=== PATIENT | male | born 1945 | race Caucasian/White ===

== ENCOUNTER → 2016-08-05 07:31 | Outpatient (CLI) | payer MEDICARE | END | disposition home or self-care (01) | LOC: D.CT 07:31 | DX: R04.2 Hemoptysis (principal); J44.9 Chronic obstructive pulmonary disease, unspecified ==

== ENCOUNTER 2016-08-12 04:00 | Emergency (ER) | payer MEDICARE ==
[2016-08-13] MEDS ORDERED: IPRAT-ALBUT 0.5-3 ML UPD (15:38)
[2016-08-13] MEDS ORDERED: ZANTAC150 MG PO (15:39)
[2016-08-14 13:06] VITALS: BMI 16.9
== END 2016-08-12 05:00 | disposition home or self-care (01) ==
LOC: D.ER 04:00
DX: J47.1 Bronchiectasis with (acute) exacerbation (principal); J44.1 Chronic obstructive pulmonary disease with (acute) exacerbation

== ENCOUNTER 2016-08-13 04:17 | Emergency (ER) | payer MEDICARE ==
[2016-08-13] MEDS ORDERED: IPRAT-ALBUT 0.5-3 ML UPD (15:38)
[2016-08-13] MEDS ORDERED: ZANTAC150 MG PO (15:39)
[2016-08-14 13:06] VITALS: BMI 16.9
== END 2016-08-13 05:30 | disposition home or self-care (01) ==
LOC: D.ER 04:17
DX: R06.02 Shortness of breath (principal); J44.1 Chronic obstructive pulmonary disease with (acute) exacerbation

== ENCOUNTER 2016-08-13 10:22 | Inpatient (IN) | payer MEDICARE ==
[~2016-08-13] VITALS: Ht 182.9 cm; Wt 58.2 kg
[2016-08-13 11:20] LABS: BASOPHILS 0.3 % (0-2); EOSINOPHILS 0.6 % (0-7); HEMATOCRIT 42.2 % (42.0-54.0); IMMATURE GRANULOCYTES 0.3 % (0-5); LYMPHOCYTES 17.9 % (15-50); MCH 31.5 pg (26.0-34.0); MCHC 33.2 g/dL (31.0-37.0); MCV 94.8 fL (80.0-100.0); MEAN PLATELET VOLUME 8.8 fL (7.4-10.4); MONOCYTES 10.6 % (2-11); NEUTROPHILS 70.3 % (40-80); RBC 4.45 10x6/uL (4.20-6.10); RDW 14.3 % (11.5-14.5); WBC 11.6 10x3/uL (4.8-10.8)
[2016-08-13 11:22] LABS: ALBUMIN 4.1 g/dL (3.4-5.0); ALKALINE PHOSPHATASE 104 U/L (46-116); ALT (SGPT) 28 U/L (10-68); BILIRUBIN - TOTAL 0.77 mg/dL (0.2-1.3); CALC OSMOLALITY 280 mosm/kg (275-300); CALCIUM 9.3 mg/dL (8.5-10.1); CARBON DIOXIDE 28.8 mmol/L (21.0-32.0); CHLORIDE - SERUM 102 mmol/L (98-107); GLUCOSE 94 mg/dL (74-106); POTASSIUM - SERUM 3.6 mmol/L (3.5-5.1); PROTEIN - SERUM 7.2 g/dL (6.4-8.2); SODIUM 140 mmol/L (136-145); UREA NITROGEN 19 mg/dL (7-18); eGFR NON AFRICAN AMERICAN 78 mL/min (90-120)
[2016-08-13 11:23] LABS: PLATELET COUNT 319 10x3/uL (130-400)
[2016-08-13 11:29] LABS: PRO BNP 532 pg/mL (0-125)
--- NOTE | 2016-08-13 15:35 | NUR ---
1523- RECEIVED PT VIA WHEELCHAIR. PT IS ALERT AND ORIENTED. UP AD MINA. ON O2 AT 2L VIA NC. NO MONITOR (CURRENTLY). IV SEEN TO LEFT AC WITH NS RUNNING AT 100CC. WILL ADMIT PT AND CONTINUE TO MONITOR.
[2016-08-13] MEDS ORDERED: IPRAT-ALBUT 0.5-3 ML UPD (15:38)
[2016-08-13] MEDS ORDERED: ZANTAC150 MG PO (15:39)
[2016-08-13 15:40] VITALS: BP 123/76; BMI 18.0
[2016-08-13 15:49] VITALS: BP 123/76
--- NOTE | 2016-08-13 17:08 | NUR ---
ON MONITOR SHOWING SR, HR 79.
--- NOTE | 2016-08-13 18:18 | NUR ---
PT IS CURRENTLY SITTING UP IN BED WITH EYES OPEN RESTING. IS AT BEDSIDE. NO NEED AT CURRENT TIME. DR. GUAN IS IN ROOM NOW MAKING ROUNDS NOW. WILL CONTINUE TO MONITOR.
[2016-08-13 19:00] VITALS: BP 118/73
--- NOTE | 2016-08-13 20:02 | NUR ---
UA COLLECTED AND SENT TO LAB
[2016-08-13 20:16] LABS: APPEARANCE CLEAR (CLEAR); BILIRUBIN NEGATIVE (NEGATIVE); COLOR STRAW (YELLOW); GLUCOSE NEGATIVE (NEGATIVE); KETONE NEGATIVE (NEGATIVE); LEUKOCYTE ESTERASE NEGATIVE (NEGATIVE); NITRITE NEGATIVE (NEGATIVE); PROTEIN NEGATIVE (NEGATIVE); SPECIFIC GRAVITY 1.005 (1.005-1.020); UROBILINOGEN NORMAL (NORMAL)
[2016-08-13 20:18] LABS: WHITE CELLS - URINE NSEEN /hpf (0-5)
[2016-08-13 20:19] LABS: BACTERIA NONE SEEN /hpf (NONE SEEN); EPITHELIAL CELLS 0-5 /hpf (0-5); RED CELLS - URINE 0-5 /hpf (0-5)
--- NOTE | 2016-08-14 03:06 | NUR ---
FACILITY PLANNER AT BEDSIDE TO OBTAIN VITALS, CALL LIGHT IN REACH. WILL CONTINUE WITH PLAN OF CARE.
[2016-08-14 04:00] VITALS: BP 121/72
--- NOTE | 2016-08-14 04:02 | NUR ---
ASSESSMENT COMPLETE, SEE FLOWSHEET, FAMILY AT BEDSIDE, CALL LIGHT IN REACH, WILL CONTINUE TO MONITOR
[2016-08-14 06:27] LABS: BASOPHILS 0 % (0-2); EOSINOPHILS 0 % (0-7); HEMATOCRIT 42.3 % (42.0-54.0); HEMOGLOBIN 14.2 g/dL (13.5-17.5); IMMATURE GRANULOCYTES 0.3 % (0-5); LYMPHOCYTES 4.2 % (15-50); MCH 31.8 pg (26.0-34.0); MCHC 33.6 g/dL (31.0-37.0); MCV 94.8 fL (80.0-100.0); MEAN PLATELET VOLUME 8.6 fL (7.4-10.4); MONOCYTES 5.1 % (2-11); NEUTROPHILS 90.4 % (40-80); PLATELET COUNT 296 10x3/uL (130-400); RBC 4.46 10x6/uL (4.20-6.10); RDW 14.5 % (11.5-14.5)
[2016-08-14 06:33] LABS: WBC 14.6 10x3/uL (4.8-10.8)
[2016-08-14 07:23] LABS: CALC OSMOLALITY 278 mosm/kg (275-300); CALCIUM 9.1 mg/dL (8.5-10.1); CARBON DIOXIDE 26.7 mmol/L (21.0-32.0); CHLORIDE - SERUM 102 mmol/L (98-107); GLUCOSE 118 mg/dL (74-106); SODIUM 138 mmol/L (136-145); UREA NITROGEN 17 mg/dL (7-18); eGFR NON AFRICAN AMERICAN 78 mL/min (90-120)
[2016-08-14 07:24] LABS: POTASSIUM - SERUM 4.4 mmol/L (3.5-5.1)
--- NOTE | 2016-08-14 07:34 | NUR ---
AM ROUNDING- RECEIVED REPORT FROM ICE PLATFORM SUPERVISOR NURSE CHANEL. PT IS CURRENTLY SITTING UP IN BED WITH EYES OPEN RECEIVING AT BREATHING TX. ALERT AND ORIENTED. ON AT 2L VIA NC. ON MONITOR SHOWING SR, HR 60. IV SEEN TO LEFT AC WITH NS RUNNING AT KVO (10CC). NO NEED AT CURRENT TIME. WILL CONTINUE TO MONITOR AND CONTINUE WITH PLAN OF CARE.
[2016-08-14 08:30] VITALS: BP 137/82
[2016-08-14 12:30] VITALS: BP 110/77
[2016-08-14 13:06] VITALS: Ht 182.9 cm; Wt 58.2 kg
[2016-08-14 16:00] VITALS: BP 122/71
--- NOTE | 2016-08-14 17:21 | NUR ---
STEPHANI, LABORATORY COORDINATOR IS PAGING DR. CARABALLO DUE TO PT REQUESTING ZANTAC FOR FEELING "BLOATED". WILL AWAIT CALLBACK.
--- NOTE | 2016-08-14 17:23 | NUR ---
RECEIVED CALLBACK FROM DR. CARABALLO WITH NEW ORDERS RECEIVED.
--- NOTE | 2016-08-14 18:10 | NUR ---
1745- DR. VENEGAS ON UNIT. YARELIS IS TALKING WITH DR. VENEGAS CURRENTLY ABOUT PT BEING CONFUSED AND WANTING TO GO HOME. ASKED DR. VENEGAS ABOUT STARTED IV FLUIDS ( REQUESTED BY YARELIS). DR. VENEGAS GAVE VERBAL ORDERS FOR NS TO RUN AT 50CC/HR. WILL DO ORDERED AND CONTINUE TO MONITOR.
--- NOTE | 2016-08-14 18:20 | NUR ---
PT IS CURRENTLY WALKING AROUND NURSES STATION WITH AT SIDE. PT DENIES ANY NEED AT CURRENT TIME. WILL CONTINUE TO MONITOR.
[2016-08-14 19:00] VITALS: BP 118/68
--- NOTE | 2016-08-14 19:35 | NUR ---
RECEIVED REPORT, PT VISITING WITH , DENIES ANY NEEDS, BED IS LOW, SRX1, WILL CONTINUE PLAN OF CARE
--- NOTE | 2016-08-15 03:48 | NUR ---
ASSESSMENT COMPLETE, 022L, [id number], [id number]-94-ML, ENCOURAGE TO USE INCENTIVE SPIRAMETER, FAMILY AT BEDSIDE, BED IS LOW, SRX1, PT IS UP AB MINA, CALL LIGHT IN REACH, WILL CONTINUE PLAN OF CARE
[2016-08-15 04:00] VITALS: BP 122/76
--- NOTE | 2016-08-15 07:05 | NUR ---
RECEIVED REPORT. ASSUMED CARE OF PATIENT. PATIENT SITTING UP IN BED HAVING COFFEE. RESP EVEN AND UNLABORED. PATIENT STATES HE FEELS BETTER TODAY THAN HE HAS. PATIENT IS COMPLETELY DRESSED IN STREET CLOTHING. DENIES NEEDS. CALL LIGHT WITHIN REACH. NO DISTRESS.
[2016-08-15 08:54] VITALS: BP 121/66
[2016-08-15 09:17] LABS: BASOPHILS 0.1 % (0-2); EOSINOPHILS 0.1 % (0-7); HEMATOCRIT 44.4 % (42.0-54.0); HEMOGLOBIN 14.8 g/dL (13.5-17.5); IMMATURE GRANULOCYTES 0.3 % (0-5); LYMPHOCYTES 10.2 % (15-50); MCH 31.8 pg (26.0-34.0); MCHC 33.3 g/dL (31.0-37.0); MCV 95.3 fL (80.0-100.0); MEAN PLATELET VOLUME 8.8 fL (7.4-10.4); MONOCYTES 7.1 % (2-11); NEUTROPHILS 82.2 % (40-80); PLATELET COUNT 308 10x3/uL (130-400); RBC 4.66 10x6/uL (4.20-6.10); RDW 14.6 % (11.5-14.5); WBC 17.2 10x3/uL (4.8-10.8)
[2016-08-15 09:28] LABS: CALC OSMOLALITY 278 mosm/kg (275-300); CALCIUM 9.2 mg/dL (8.5-10.1); CARBON DIOXIDE 25.8 mmol/L (21.0-32.0); CHLORIDE - SERUM 102 mmol/L (98-107); CREATININE - SERUM 0.9 mg/dL (0.6-1.3); GLUCOSE 106 mg/dL (74-106); MAGNESIUM - SERUM 1.9 mg/dL (1.8-2.4); PHOSPHOROUS 3.3 mg/dL (2.5-4.9); SODIUM 138 mmol/L (136-145); UREA NITROGEN 20 mg/dL (7-18); eGFR NON AFRICAN AMERICAN 88 mL/min (90-120)
[2016-08-15 09:31] LABS: POTASSIUM - SERUM 3.6 mmol/L (3.5-5.1)
--- NOTE | 2016-08-15 10:00 | EC ---
PATIENT:ALFONSO JONAS DATE OF SERVICE: 08/13/16 SEX: M MEDICAL RECORD: [id number] DATE OF : [birth year] LOCATION:D.M2 D.213 AGE OF PATIENT: 70 ADMISSION DATE: 08/13/16 REFERRING PHYSICIAN: INTERPRETING PHYSICIAN: ROSITA WIN MD ECHOCARDIOGRAM REPORT ECHO CHARGES 4 ECHO COMPLETE CLINICAL DIAGNOSIS: SOB ECHOCARDIOGRAPHIC MEASUREMENTS (adult normal given) AC root (d.<3.7cm) 3.7 LV Septum d (<1.2 cm> 1.0 Valve Excursion 1.2 LV Septum (systole) 1.1 Left Atria (s.<4.0cm> 3.5 LVPW d(<1.2cm) 1.1 RV (d.<2.3cm) 3.6 LVPW (sytole) 1.2 LV diastole(<5.6CM) 5.0 MV E-F(>70mm/sec) LV systole 2.7 LVOT Diameter 1.2 MV exc.(>10mm) 2.4 Est.ejection fraction (50-75%) Pericardial Effusion N DOPPLER: LVIT A 76.0 E 64.0 LA RVSP 41 LVOT 92 AOP1/2T Asc. Ao RVOT 159 RA PA AV Gradient Peak 10.00 AV Mean 4.63 AV Area 1.2 MV Gradient Peak 4.37 MV Mean 1.63 MV Area COMMENTS: Forest Pathology Professor: Sacha MCWILLIAMS Steel Die Engraver:2 Dr. Recio TAPE# PACS DATE OF SERVICE: 08/14/2016 Adequate 2D echo, color flow, spectral Doppler and M-mode. No LVH. LV internal dimension is normal. Wall motion is normal. EF is greater than or equal to 55%. Aortic valve sclerosis without stenosis by Doppler interrogation. The left atrium is normal. Mitral valve shows no prolapse, only mild MR. Right-sided chamber is normal. Trace TR. TRANSINT:[id number] Voice Confirmation ID: [id number] DOCUMENT ID: [id number] ECHOCARDIOGRAM REPORT [id number] ALFONSO JONAS ROSITA WIN MD at 1000 CC: [id number] DICTATION DATE: 08/14/16 1251 EMPLOYEE BENEFITS INSURANCE AGENT: 08/14/16 2211 ADM IN [facility] [address] [facility] [place] [address]
--- NOTE | 2016-08-15 10:50 | NUR ---
PATIENT DISCONNECTED FROM IV KVO RATE AT THIS TIME SO PATIENT CAN AMBULATE ON UNIT WITH HIS . AMBULATING WELL THROUGHOUT UNIT. NO DISTRESS
[2016-08-15 12:00] VITALS: BP 111/68
--- NOTE | 2016-08-15 15:00 | NUR ---
PATIENT AMBULATING WITH IV POLE AROUND UNIT WITH HIS SPOUSE. RESP EVEN AND UNLABORED. NO DISTRESS.
[2016-08-15 16:59] VITALS: BP 100/62
--- NOTE | 2016-08-15 17:00 | NUR ---
SHOWER COMPLETED AND LINENS CHANGED. PATIENT O2 SAT ON ROOM AIR AT THIS TIME IS 98%, PATIENT HAS BEEN OFF OXYGEN X 20 MINUTES WHILE IN SHOWER. SITTING IN BED. CALL LIGHT WITHIN REACH. NO DISTRESS.
[2016-08-15 19:00] VITALS: BP 96/58
--- NOTE | 2016-08-15 19:25 | NUR ---
RECEIVED REPORT, PT UP TO SINK BRUSHING TEETH, AT BEDSIDE, WILL CONTINUE PLAN OF CARE
[2016-08-16] VITALS: BP 112/72
--- NOTE | 2016-08-16 03:54 | NUR ---
ASSESSMENT COMPLETE, SEE FLOWSHEET, PT SLEEPING, AT BEDSIDE, BED IS LOW, SRX2, CALL LIGHT IN REACH, WILL CONTINUE PLAN OF CARE
[2016-08-16 04:00] VITALS: BP 112/71
--- NOTE | 2016-08-16 04:41 | NUR ---
PT RESTING IN BED WITH NO DISTRESS. CPOC.
[2016-08-16 05:21] LABS: BASOPHILS 0.1 % (0-2); EOSINOPHILS 0 % (0-7); HEMATOCRIT 42.2 % (42.0-54.0); HEMOGLOBIN 14.2 g/dL (13.5-17.5); IMMATURE GRANULOCYTES 0.2 % (0-5); MCH 32.2 pg (26.0-34.0); MCHC 33.6 g/dL (31.0-37.0); MCV 95.7 fL (80.0-100.0); MEAN PLATELET VOLUME 9.1 fL (7.4-10.4); NEUTROPHILS 89.7 % (40-80); PLATELET COUNT 330 10x3/uL (130-400); RBC 4.41 10x6/uL (4.20-6.10); RDW 14.7 % (11.5-14.5)
[2016-08-16 05:27] LABS: CALC OSMOLALITY 277 mosm/kg (275-300); CALCIUM 8.8 mg/dL (8.5-10.1); CARBON DIOXIDE 28.5 mmol/L (21.0-32.0); CHLORIDE - SERUM 101 mmol/L (98-107); CREATININE - SERUM 0.9 mg/dL (0.6-1.3); GLUCOSE 133 mg/dL (74-106); POTASSIUM - SERUM 4.4 mmol/L (3.5-5.1); SODIUM 137 mmol/L (136-145); UREA NITROGEN 17 mg/dL (7-18); WBC 12.1 10x3/uL (4.8-10.8); eGFR NON AFRICAN AMERICAN 88 mL/min (90-120)
[2016-08-16] MEDS ORDERED: SINGULAIR10 MG PO (05:58)
[2016-08-16] MEDS ORDERED: PULMICORT0.5 MG/21 UPD (05:58)
[2016-08-16] MEDS ORDERED: PREDNISONE20 MG PO (05:59)
[2016-08-16] MEDS ORDERED: LEVAQUIN500 MG PO (05:59)
--- NOTE | 2016-08-16 07:00 | NUR ---
RECIEVED REPORT. ASSUMED CARE OF PATIENT. CALL LIGHT WITHIN REACH. PATIENT SITTING UP IN BED WITH ATTENTION TOWARDS TELVISION. RESP EVEN AND UNLABORED. PATIENT REPORTS THAT HE WILL BE GOING HOME TODAY. DISCHARGE ORDERS VERIFIED. DENIES NEEDS. NO DISTRESS.
--- NOTE | 2016-08-16 10:05 | NUR ---
18 GAUGE IV CATHETER REMOVED FROM LEFT FOREARM PATIENT IS DISCHARGING TO HOME. CATHETER TIP INTACT. NO BLEEDING FROM SITE. 2X2 GAUZE APPLIED AND SECURED WITH TAPE. PATIENT TOLERATED IV REMOVAL WELL. NO DISTRESS. PATIENT UP AMBULATING ON UNIT WITH HIS SPOUSE WAITING ON DISCHARGE PAPERS AT THIS TIME.
--- NOTE | 2016-08-16 11:44 | NUR ---
1125 DISCHARGE INSTRUCTIONS PROVIDED TO PATIENT. PATIENT VERBALIZED UNDERSTANDING OF ALL INSTRUCTIONS PROVIDED. PRESCRIPTIONS ESCRIBED TO STEPHANY VIA .
--- NOTE | 2016-08-16 12:18 | NUR ---
1205 PATIENT LEFT UNIT VIA WHEELCHAIR. PATIENT DISCHARGED TO HOME WITH FAMILY. PATIENT LEFT UNIT WITH ALL PERSONAL BELONGINGS. NO DISTRESS UPON LEAVING UNIT.
--- NOTE | 2016-08-16 18:54 | NUR ---
PATIENT WAS DISCHARGED EARLIER TODAY AND CALLED DUE TO MEDICATION QUESTIONS. PATIENT STATES [facility] GAVE HIM SYMBICORT AND HE SAID HE THOUGHT HIS PRESCRIPTION WAS FOR PULMICORT. DISCHARGE INSTRUCTION ACCESSED AND VERIFIED THAT D/C MED WAS FOR PULMICORT AND [facility]AR[facility] GAVE WRONG MED. INSTRUCTED PATIENT NOT TO USE THE MED GIVEN AND CONTACT PHARMACY IN AM FOR CORRECT PULMICORT. PATIENT THANKED THIS NURSE.
== END 2016-08-16 12:05 | disposition home or self-care (01) | DRG 190 ==
LOC: D.ER 10:22 → D.M2 13:56
PROVIDERS: Emergency Medicine; Internal Medicine Pulmonary Disease; ADMIT Family Medicine
DX: J44.0 Chronic obstructive pulmonary disease with (acute) lower respiratory infection (principal); J15.6 Pneumonia due to other Gram-negative bacteria; F17.203 Nicotine dependence unspecified, with withdrawal; J44.1 Chronic obstructive pulmonary disease with (acute) exacerbation; K21.9 Gastro-esophageal reflux disease without esophagitis; F41.9 Anxiety disorder, unspecified

== ENCOUNTER 2016-10-04 14:17 | Emergency (ER) | payer MEDICARE ==
[2016-08-14 13:06] VITALS: BMI 16.9
[~2016-10-04 14:17] MED LIST: IPRAT-ALBUT 0.5-3 ML UPD; LEVAQUIN500 MG PO; PREDNISONE20 MG PO; PULMICORT0.5 MG/21 UPD; SINGULAIR10 MG PO; ZANTAC150 MG PO
== END 2016-10-04 16:35 | disposition home or self-care (01) ==
LOC: D.ER 14:17
DX: T78.40XA Allergy, unspecified, initial encounter (principal); X58.XXXA Exposure to other specified factors, initial encounter; L50.9 Urticaria, unspecified; C67.9 Malignant neoplasm of bladder, unspecified; J44.9 Chronic obstructive pulmonary disease, unspecified

== ENCOUNTER → 2016-10-13 15:20 | Outpatient (CLI) | payer MEDICARE ==
[2016-08-14 13:06] VITALS: BMI 16.9
== END | disposition home or self-care (01) ==
LOC: D.LABREF 15:20
DX: R31.9 Hematuria, unspecified (principal)

== ENCOUNTER → 2016-10-16 10:35 | Outpatient (CLI) | payer MEDICARE ==
[2016-08-14 13:06] VITALS: BMI 16.9
== END | disposition home or self-care (01) ==
LOC: D.CT 10-15 13:00
DX: R31.29 Other microscopic hematuria (principal); Z85.51 Personal history of malignant neoplasm of bladder

== ENCOUNTER 2016-10-22 07:27 | Emergency (ER) | payer MEDICARE ==
[2016-08-14 13:06] VITALS: BMI 16.9
[2016-10-22 08:56] LABS: BASOPHILS 0.4 % (0-2); EOSINOPHILS 1.2 % (0-7); HEMATOCRIT 43.2 % (42.0-54.0); HEMOGLOBIN 14.3 g/dL (13.5-17.5); IMMATURE GRANULOCYTES 0.3 % (0-5); LYMPHOCYTES 22.4 % (15-50); MCH 31.4 pg (26.0-34.0); MCHC 33.1 g/dL (31.0-37.0); MCV 94.7 fL (80.0-100.0); MEAN PLATELET VOLUME 8.6 fL (7.4-10.4); MONOCYTES 10.1 % (2-11); NEUTROPHILS 65.6 % (40-80); RBC 4.56 10x6/uL (4.20-6.10); RDW 14.5 % (11.5-14.5); WBC 9.5 10x3/uL (4.8-10.8)
[2016-10-22 09:01] LABS: PLATELET COUNT 261 10x3/uL (130-400)
[2016-10-22 09:21] LABS: ALBUMIN 3.9 g/dL (3.4-5.0); ALKALINE PHOSPHATASE 97 U/L (46-116); ALT (SGPT) 36 U/L (10-68); BILIRUBIN - TOTAL 0.96 mg/dL (0.2-1.3); CALC OSMOLALITY 276 mosm/kg (275-300); CALCIUM 8.8 mg/dL (8.5-10.1); CARBON DIOXIDE 31.3 mmol/L (21.0-32.0); CHLORIDE - SERUM 100 mmol/L (98-107); GLUCOSE 98 mg/dL (74-106); POTASSIUM - SERUM 3.9 mmol/L (3.5-5.1); PROTEIN - SERUM 6.6 g/dL (6.4-8.2); SODIUM 138 mmol/L (136-145); UREA NITROGEN 15 mg/dL (7-18); eGFR NON AFRICAN AMERICAN 78 mL/min (90-120)
== END 2016-10-22 10:14 | disposition home or self-care (01) ==
LOC: D.ER 07:27
PROVIDERS: Emergency Medicine
DX: J44.1 Chronic obstructive pulmonary disease with (acute) exacerbation (principal); R00.1 Bradycardia, unspecified

== ENCOUNTER 2016-11-17 08:59 | Outpatient (CLI) | payer MEDICARE ==
[~2016-11-17] VITALS: Ht 182.9 cm; Wt 59.1 kg
[2016-11-17] MEDS ORDERED: PREDNISONE5 MG PO (10:31)
[2016-11-17] MEDS ORDERED: CARAFATE1 G PO (10:31)
[2016-11-17 10:36] VITALS: BP 120/70; Ht 182.9 cm; Wt 59.1 kg
[2016-11-17 10:43] LABS: BASOPHILS 0.2 % (0-2); EOSINOPHILS 1.5 % (0-7); HEMATOCRIT 41.8 % (42.0-54.0); HEMOGLOBIN 13.9 g/dL (13.5-17.5); IMMATURE GRANULOCYTES 0.5 % (0-5); LYMPHOCYTES 20.6 % (15-50); MCH 31.4 pg (26.0-34.0); MCHC 33.3 g/dL (31.0-37.0); MCV 94.6 fL (80.0-100.0); MEAN PLATELET VOLUME 8.3 fL (7.4-10.4); MONOCYTES 10.5 % (2-11); NEUTROPHILS 66.7 % (40-80); PLATELET COUNT 244 10x3/uL (130-400); RBC 4.42 10x6/uL (4.20-6.10); RDW 14.3 % (11.5-14.5); WBC 9.4 10x3/uL (4.8-10.8)
[2016-11-17 10:53] LABS: APTT 28.2 SECONDS (22.8-39.4); INR 1.01 (0.85-1.17); PROTIME 13.1 SECONDS (11.6-15.0)
--- NOTE | 2016-11-17 13:01 | NUR ---
1230 XRAY HERE FOR CXRAY; 1245 ICE CHIPS GIVEN
--- NOTE | 2016-11-17 14:24 | NUR ---
1415 POST PROCEDURE CHEST XRAY WITH NO PNEUMOTHORAX. PT UP TO BATHROOM. AMBULATORY WITHOUT DIFFICULTY. VOIDED. BACK TO BED. IV DC'ED WITH CATH INTACT. DRESSING. FAMILY AT BEDSIDE. Shannon HELTON R.N. 1420 DRESSED. GIVEN DISCHARGE INSTRUCTIONS INCLUDING MED REC, RTC APPT., COMPUTER GENERATED POST BRONCHOSCOPY DISCHARGE INSTRUCTIONS, & [facility] OPS D/C INSTRUCTIONS. PT VOICED UNDERSTANDING. TO PRIVATE CAR PER WHEELCHAIR. HOME WITH MRS. JONAS. Shannon HELTON R.N.
[2016-11-19 16:13] LABS: ACID FAST SMEAR Negative (()); AFB SPECIMEN PROCESSING Concentration (())
[2016-11-20 12:16] LABS: FUNGUS STAIN Final report (())
[2016-11-25 10:20] LABS: FUNGUS MYCOLOGY CULTURE Preliminary report (())
== END 2016-11-17 14:20 | disposition home or self-care (01) ==
LOC: D.OPS 08:59
PROVIDERS: Internal Medicine Pulmonary Disease
DX: J44.1 Chronic obstructive pulmonary disease with (acute) exacerbation (principal); Z83.49 Family history of other endocrine, nutritional and metabolic diseases; J47.9 Bronchiectasis, uncomplicated; R93.8 Abnormal findings on diagnostic imaging of other specified body structures; F17.200 Nicotine dependence, unspecified, uncomplicated; G47.19 Other hypersomnia; R63.4 Abnormal weight loss; K21.9 Gastro-esophageal reflux disease without esophagitis; R05 Cough; Z01.812 Encounter for preprocedural laboratory examination

== ENCOUNTER → 2016-11-19 13:42 | Outpatient (CLI) | payer MEDICARE ==
[2016-11-17 10:36] VITALS: BMI 17.6
[~2016-11-19 13:42] MED LIST changes: +CARAFATE1 G PO; +PREDNISONE5 MG PO
== END | disposition home or self-care (01) ==
LOC: D.RT 13:42
DX: J47.9 Bronchiectasis, uncomplicated (principal)

== ENCOUNTER 2016-11-21 16:06 | Emergency (ER) | payer MEDICARE | END 2016-11-21 18:28 | disposition home or self-care (01) | LOC: D.ER 16:06 | DX: R06.00 Dyspnea, unspecified (principal); F17.200 Nicotine dependence, unspecified, uncomplicated; J44.9 Chronic obstructive pulmonary disease, unspecified; Z85.51 Personal history of malignant neoplasm of bladder; Q21.1 Atrial septal defect ==

== ENCOUNTER 2016-12-01 10:08 | Day surgery (SDC) | payer MEDICARE ==
[~2016-12-01] VITALS: Ht 182.9 cm; Wt 59.0 kg
[~2016-12-01 10:08] MED LIST changes: +DIFLUCAN100 MG; +PREDNISONE10 MG PO; -PREDNISONE5 MG PO
[2016-12-01 11:11] VITALS: BP 146/67; Ht 182.9 cm; Wt 59.0 kg
[2016-12-01 11:15] LABS: BASOPHILS 0.3 % (0-2); EOSINOPHILS 1.1 % (0-7); HEMATOCRIT 42.8 % (42.0-54.0); HEMOGLOBIN 14.3 g/dL (13.5-17.5); IMMATURE GRANULOCYTES 0.9 % (0-5); LYMPHOCYTES 29.7 % (15-50); MCH 31.6 pg (26.0-34.0); MCHC 33.4 g/dL (31.0-37.0); MCV 94.7 fL (80.0-100.0); MEAN PLATELET VOLUME 8.2 fL (7.4-10.4); MONOCYTES 10.1 % (2-11); NEUTROPHILS 57.9 % (40-80); RBC 4.52 10x6/uL (4.20-6.10); RDW 14.6 % (11.5-14.5); WBC 10.5 10x3/uL (4.8-10.8)
[2016-12-01 11:17] LABS: PLATELET COUNT 293 10x3/uL (130-400)
[2016-12-01 11:28] LABS: CALC OSMOLALITY 274 mosm/kg (275-300); CALCIUM 8.5 mg/dL (8.5-10.1); CARBON DIOXIDE 30.6 mmol/L (21.0-32.0); CHLORIDE - SERUM 102 mmol/L (98-107); CREATININE - SERUM 0.9 mg/dL (0.6-1.3); GLUCOSE 78 mg/dL (74-106); POTASSIUM - SERUM 3.5 mmol/L (3.5-5.1); SODIUM 138 mmol/L (136-145); UREA NITROGEN 12 mg/dL (7-18); eGFR NON AFRICAN AMERICAN 88 mL/min (90-120)
[2016-12-01 11:37] LABS: APTT 26.9 SECONDS (22.8-39.4); INR 0.99 (0.85-1.17)
--- NOTE | 2016-12-01 16:27 | NUR ---
1545 IV DC WITH CATHER TIP INTACT, VOIDED
--- NOTE | 2016-12-02 14:43 | OP ---
PATIENT NAME: ALFONSO JONAS MEDICAL RECORD: [id number] :43 LOCATION:[facility] ADMISSION DATE: SURGEON: ERNST DUNAWAY MD DATE OF OPERATION: 12/01/2016 SURGEON: Ernst Dunaway MD ANESTHESIA: General anesthesia by Dana Smith CRNA PREOPERATIVE DIAGNOSES: History of bladder cancer, microhematuria. PROCEDURE: Cystoscopy. FINDINGS: Single ureteral orifices bilaterally, no bladder tumors. CLINICAL HISTORY: This is a 71-year-old male, who was referred by Dr. Mazariegos for microhematuria. He has a diagnosis of non-muscle invasive bladder cancer in 2007. This was in [place]. His last cystoscopy was in 2012 when he left [place]. Since he has been here in [place], he has not had any cystoscopy performed. He does have a history of smoking 2 packs per day for 60 years and he quit in 07/2016 when he was hospitalized here for a COPD exacerbation. Past history includes COPD, alcoholism, GERD, and bladder cancer. A hematuria workup was performed on him. Urine cytology was benign. He has CT scan of the abdomen and pelvis. This showed mucus plugging of the lower lobes of the lung with some atelectasis. Kidneys were normal. Bladder was not in any way unusual. He comes now to have cystoscopy performed. HE IS ALLERGIC TO PENICILLIN, SULFA, BEE VENOM, AND COCA. He was given Levaquin 500 mg IV probation manager to the OR. General anesthesia was given to the patient in case we had to perform a resection. Also, anesthesia felt that he should be intubated because of his GERD and risk of aspiration. DESCRIPTION OF PROCEDURE: The patient was given induction of general anesthesia. He was placed in the dorsal lithotomy position and prepped and draped. A 17-German cystoscope with 30-degree lens was used for visualization. Penile urethra was normal with no strictures or tumors. Prostatic urethra is vascular; however, it is nonobstructive. The bladder neck was somewhat tight. Going into the bladder, there are single ureteral orifices on each side. There are some slight areas of inflammation in the bladder, but no obvious tumors were seen. Most likely, the microhematuria is coming from the vascular prostate. The bladder was then emptied entirely through the cystoscope sheath, and the scope was removed. TRANSINT:[id number] Voice Confirmation ID: [id number] DOCUMENT ID: [id number] ERNST DUNAWAY MD at 1443 CC: [id number] DICTATION DATE: 12/01/16 1434 HOME BASED ASSISTANT: 12/01/16 175 [facility] 12/01/16 [place] [id number] [place] [id number]
== END 2016-12-01 16:00 | disposition home or self-care (01) ==
LOC: D.OPS 10:08 → D.PAN 12:00 → D.OPS 16:00
PROVIDERS: Anesthesiology
DX: R31.21 Asymptomatic microscopic hematuria (principal); Z85.51 Personal history of malignant neoplasm of bladder; F17.200 Nicotine dependence, unspecified, uncomplicated; J44.9 Chronic obstructive pulmonary disease, unspecified; K21.9 Gastro-esophageal reflux disease without esophagitis; Z01.812 Encounter for preprocedural laboratory examination

== ENCOUNTER → 2016-12-07 08:26 | Outpatient (CLI) | payer MEDICARE ==
[2016-12-01 11:11] VITALS: BMI 17.6
== END | disposition home or self-care (01) ==
LOC: D.US 11-30 09:30 → D.RAD 12-01 08:45 → D.NM 12-01 10:00 → D.US 08:26
DX: K59.00 Constipation, unspecified (principal); B37.81 Candidal esophagitis; K31.89 Other diseases of stomach and duodenum; K31.5 Obstruction of duodenum

== ENCOUNTER → 2016-12-21 08:41 | Outpatient (CLI) | payer MEDICARE ==
[2016-12-01 11:11] VITALS: BMI 17.6
== END | disposition home or self-care (01) ==
LOC: D.NM 12-10 09:00
DX: K59.00 Constipation, unspecified (principal)

== ENCOUNTER → 2017-04-01 10:12 | Outpatient (CLI) | payer MEDICARE ==
[2016-12-01 11:11] VITALS: BMI 17.6
== END | disposition home or self-care (01) ==
LOC: D.CT 01-13 11:00
DX: J32.9 Chronic sinusitis, unspecified (principal); J44.9 Chronic obstructive pulmonary disease, unspecified

== ENCOUNTER → 2018-01-25 13:43 | Outpatient (CLI) | payer MEDICARE ==
[2016-12-01 11:11] VITALS: BMI 17.6
== END | disposition home or self-care (01) ==
LOC: D.RT 13:43
DX: J44.9 Chronic obstructive pulmonary disease, unspecified (principal)

== ENCOUNTER 2018-09-08 06:11 | Inpatient (IN) | payer MEDICARE ==
[~2018-09-08] VITALS: Ht 182.9 cm; Wt 62.6 kg
[2018-09-08 06:54] LABS: BASOPHILS 0.1 % (0-2); EOSINOPHILS 0.1 % (0-7); HEMATOCRIT 47.2 % (42.0-54.0); HEMOGLOBIN 16.5 g/dL (13.5-17.5); IMMATURE GRANULOCYTES 1.1 % (0-5); LYMPHOCYTES 10.4 % (15-50); MCH 32.9 pg (26.0-34.0); MCV 94.2 fL (80.0-100.0); MEAN PLATELET VOLUME 8.2 fL (7.4-10.4); MONOCYTES 9.2 % (2-11); NEUTROPHILS 79.1 % (40-80); PLATELET COUNT 291 10x3/uL (130-400); RBC 5.01 10x6/uL (4.20-6.10); RDW 14.6 % (11.5-14.5); WBC 14.6 10x3/uL (4.8-10.8)
[2018-09-08 07:08] LABS: APTT 25.2 SECONDS (22.8-39.4); INR 0.95 (0.85-1.17); PROTIME 12.2 SECONDS (11.6-15.0)
[2018-09-08 07:17] LABS: ALBUMIN 4.2 g/dL (3.4-5.0); ALKALINE PHOSPHATASE 87 U/L (46-116); ALT (SGPT) 34 U/L (10-68); BILIRUBIN - TOTAL 0.76 mg/dL (0.2-1.3); CALC OSMOLALITY 270 mosm/kg (275-300); CALCIUM 9.6 mg/dL (8.5-10.1); CARBON DIOXIDE 28.2 mmol/L (21.0-32.0); CHLORIDE - SERUM 98 mmol/L (98-107); CREATININE - SERUM 0.8 mg/dL (0.6-1.3); GLUCOSE 103 mg/dL (74-106); PROTEIN - SERUM 7.4 g/dL (6.4-8.2); SODIUM 135 mmol/L (136-145); UREA NITROGEN 14 mg/dL (7-18); eGFR NON AFRICAN AMERICAN > 90 mL/min (90-120)
[2018-09-08 07:29] LABS: CKMB 6.1 U/L (0.0-3.6); CREATINE KINASE 120 UL (21-232); PRO BNP 80 pg/mL (0-125)
[2018-09-08 07:32] LABS: TROPONIN-I < 0.017 ng/mL (0.000-0.060)
--- NOTE | 2018-09-08 09:05 | NUR ---
PATIENT TO ROOM AT THIS TIME. VS STABLE. NO COMPLAINTS OR SIGNS OF DISTRESS. IV ABX INFUSING. FAMILY AT BEDSIDE. C ALL LIGHT WITHIN REACH. PATIENT SITTING UP ON SIDE OF BED EATING AT THIS TIME.
[2018-09-08] MEDS ORDERED: TRELEGY ELLIPT1 EACH INH (10:37)
[2018-09-08] MEDS ORDERED: MUCINEX600 MG PO (10:37)
[2018-09-08 11:00] VITALS: BP 103/64
--- NOTE | 2018-09-08 13:18 | MORECARE ---
CASE MANAGEMENT DISCHARGE SUMMARY PATIENT: ALFONSO JONAS UNIT: [id number] ADM DATE: 09/08/18 AGE: 72 : 44 SEX: M ROOM/BED: D.1207 AUTHOR: GERRI PHILLIPS PHYSICIAN: REFERRING PHYSICIAN: JULIETA HA MD DATE OF SERVICE: 09/08/18 Discharge Plan Patient Name: ALFONSO JONAS [facility] [facility] 1945 Planned Disposition: Anticipated Discharge Date: Discharge Date: Expected LOS: Initial Reviewer: [email or web address] Initial Review Date: 09/08/2018 Generated: 09/08/18 2:18 pm Patient Name: ALFONSO JONAS Page 50461 at 1318 All edits/amendments must be made on the electronic document DICTATION DATE: 09/08/18 1317 APPLIANCE SALES ASSOCIATE: GLENDY 09/08/18 1317 RPT#: [id number] DC DATE: STATUS: ADM IN [facility] [address] [place] [address] END OF REPORT
--- NOTE | 2018-09-08 13:26 | MORECARE ---
CASE MANAGEMENT DISCHARGE SUMMARY PATIENT: ALFONSO JONAS UNIT: [id number] ADM DATE: 09/08/18 AGE: 72 : 44 SEX: M ROOM/BED: D.1207 AUTHOR: GERRI PHILLIPS PHYSICIAN: REFERRING PHYSICIAN: JULIETA HA MD DATE OF SERVICE: 09/08/18 Discharge Plan Patient Name: ALFONSO JONAS Facility: [facility]:[place] : 1945 Planned Disposition: Anticipated Discharge Date: Discharge Date: Expected LOS: Initial Reviewer: [email or web address] Initial Review Date: 09/08/2018 Generated: 09/08/18 2:25 pm Comments DCP- Discharge Planning Updated by [email or web address]: Magaly Shelton on 09/08/18 12:[address] CM met with patient regarding dc needs/plans. Patient gives permission to speak with his . Patient states he lives with his , Alda and she will drive him home upon discharge. Patient is Independent in his ADL's. PCP: Dr. Mazariegos. [facility]. DME: Nebulizer. Patient denies need for additional services upon discharge. Spouse: Alda Jonas #[phone]. CM will follow and assist with dc needs/plans PRN. Magaly Shelton RN DCPIA - Discharge Planning Initial Assessment Updated by [email or web address]: Magaly Shelton on 09/08/18 1:18 pm * Is the patient Alert and Oriented? Yes * How many steps to enter\exit or inside your home? 2 w/rails * PCP Dr. Mazariegos * Pharmacy [facility] * Preadmission Environment Home with Family * ADLs Independent * Equipment Nebulizer * Other Equipment NA * List name and contact numbers for known caregivers / representatives who currently or will assist patient after discharge: Alda Jonas () [phone] * Verbal permission to speak to the caregivers and representatives has been obtained from the patient. Yes * Community resources currently utilized None * Please name any agencies selected above. NA * Additional services required to return to the preadmission environment? No * Can the patient safely return to the preadmission environment? Yes * Has this patient been hospitalized within the prior 30 days at any hospital? No Last DP export: 09/08/18 12:18 pm Patient Name: ALFONSO JONAS Page [id number] at 1326 All edits/amendments must be made on the electronic document DICTATION DATE: 09/08/18 1325 SEWAGE DISPOSAL ENGINEER: GLENDY 09/08/18 1325 RPT#: [id number] DC DATE: STATUS: ADM IN [facility] [address] [place] [address] END OF REPORT
--- NOTE | 2018-09-08 13:30 | NUR ---
DR. RAYGOZA STATED THAT HE IS DISCONTINUING THE SITTER FOR THE PATIENT. SAID HE SPOKE WITH PATIENT AND DOESNT FEEL HIS IS ACTIVELY SUICIDAL.
--- NOTE | 2018-09-08 16:00 | NUR ---
PATIENT SATS 95% ON RA. WANTS TO GET UP IN WC AND GO FOR A RIDE WITH . DOESNT WANT TO STAY IN ROOM. NO PROBLEMS AT THIS TIME.
--- NOTE | 2018-09-08 16:30 | NUR ---
PATIENT SITTING UP IN BED EATING AT THIS TIME WITH NO COMPLAINTS OR SIGNS OF DISTRESS. IV INTACT. CALL LIGHT WITHIN REACH.
[2018-09-08 17:04] VITALS: BMI 18.7
[2018-09-08 18:00] VITALS: BP 130/86
[2018-09-08 18:24] LABS: APPEARANCE CLEAR (CLEAR); BILIRUBIN NEGATIVE (NEGATIVE); COLOR YELLOW (YELLOW); GLUCOSE NEGATIVE (NEGATIVE); KETONE NEGATIVE (NEGATIVE); NITRITE NEGATIVE (NEGATIVE); PROTEIN NEGATIVE (NEGATIVE); UROBILINOGEN NORMAL (NORMAL)
--- NOTE | 2018-09-08 18:36 | NUR ---
PATIENT IN BED WITH IV INTACT. NO COMPLAINTS OR SIGNS OF DISTRESS. CALL LIGHT WITHIN REACH.
--- NOTE | 2018-09-08 19:50 | NUR ---
EVENING ROUNDS COMPLETED. VSS, AAOX4, NO S/S OF DISTRESS. PIV PATENT AND INTACT. NO S/S OF DISTRESS NOTED. PLACED PT ON A SPIRAL BINDER. PT CURIOUS ABOUT MEDICATION HE IS TAKING. PROVIDE EDUCTION ABOUT PT'S MEDS. PT VOICED THANKS. DENIES ANY FURTHER NEEDS AT THIS TIME. WILL CPOC. CL WITHIN REACH, BED IN LOW, SR UP X2.
[2018-09-08 20:00] VITALS: BP 135/81
[2018-09-09] VITALS: BP 138/79
[2018-09-09 04:00] VITALS: BP 124/75
[2018-09-09 07:18] LABS: ALBUMIN 3.6 g/dL (3.4-5.0); ALKALINE PHOSPHATASE 70 U/L (46-116); ALT (SGPT) 29 U/L (10-68); BILIRUBIN - TOTAL 0.55 mg/dL (0.2-1.3); CALC OSMOLALITY 277 mosm/kg (275-300); CARBON DIOXIDE 27.8 mmol/L (21.0-32.0); CHLORIDE - SERUM 101 mmol/L (98-107); CREATININE - SERUM 0.7 mg/dL (0.6-1.3); GLUCOSE 109 mg/dL (74-106); POTASSIUM - SERUM 4.2 mmol/L (3.5-5.1); PROTEIN - SERUM 6.4 g/dL (6.4-8.2); SODIUM 138 mmol/L (136-145); UREA NITROGEN 14 mg/dL (7-18); eGFR NON AFRICAN AMERICAN > 90 mL/min (90-120)
[2018-09-09 07:28] LABS: BASOPHILS 0.1 % (0-2); EOSINOPHILS 0 % (0-7); HEMATOCRIT 43.9 % (42.0-54.0); HEMOGLOBIN 15.1 g/dL (13.5-17.5); IMMATURE GRANULOCYTES 0.9 % (0-5); MCH 32.6 pg (26.0-34.0); MCHC 34.4 g/dL (31.0-37.0); MCV 94.8 fL (80.0-100.0); MEAN PLATELET VOLUME 8.5 fL (7.4-10.4); MONOCYTES 7.5 % (2-11); NEUTROPHILS 86.5 % (40-80); PLATELET COUNT 298 10x3/uL (130-400); RBC 4.63 10x6/uL (4.20-6.10); RDW 14.7 % (11.5-14.5); WBC 17.3 10x3/uL (4.8-10.8)
--- NOTE | 2018-09-09 11:23 | NUR ---
PERIPHERAL IV RESTRTED TO LEFT WRIST BY ANGELIKA PULIDO.
[2018-09-09 13:03] VITALS: BP 118/62
[2018-09-09 14:09] VITALS: Ht 182.9 cm; Wt 62.6 kg
--- NOTE | 2018-09-09 14:34 | NUR ---
DR GUAN IN TO SEE PT. PT STATES HE WOULD LIKE TO GO HOME. DR GUAN SAID POSSIBLY THIS WEEKEND. PT DENIES NEEDS. WCTM.
[2018-09-09 15:11] VITALS: BP 119/82
[2018-09-09 20:00] VITALS: BP 116/77
[2018-09-10] VITALS: BP 141/72
[2018-09-10 04:00] VITALS: BP 131/70
[2018-09-10 07:03] LABS: BASOPHILS 0 % (0-2); EOSINOPHILS 0 % (0-7); HEMATOCRIT 45.6 % (42.0-54.0); HEMOGLOBIN 15.6 g/dL (13.5-17.5); LYMPHOCYTES 4.4 % (15-50); MCH 32.2 pg (26.0-34.0); MCHC 34.2 g/dL (31.0-37.0); MEAN PLATELET VOLUME 8.3 fL (7.4-10.4); MONOCYTES 6.3 % (2-11); NEUTROPHILS 88.3 % (40-80); PLATELET COUNT 277 10x3/uL (130-400); RBC 4.85 10x6/uL (4.20-6.10); RDW 14.6 % (11.5-14.5); WBC 16.9 10x3/uL (4.8-10.8)
[2018-09-10 07:12] LABS: CALC OSMOLALITY 273 mosm/kg (275-300); CALCIUM 9.1 mg/dL (8.5-10.1); CARBON DIOXIDE 27.4 mmol/L (21.0-32.0); CHLORIDE - SERUM 100 mmol/L (98-107); CREATININE - SERUM 0.9 mg/dL (0.6-1.3); GLUCOSE 101 mg/dL (74-106); POTASSIUM - SERUM 4.4 mmol/L (3.5-5.1); SODIUM 136 mmol/L (136-145); UREA NITROGEN 18 mg/dL (7-18); eGFR NON AFRICAN AMERICAN 88 mL/min (90-120)
--- NOTE | 2018-09-10 08:00 | NUR ---
PT SITTING UP IN CHAIR AT BEDSIDE. NO ACUTE DISTRESS NOTED AT THIS TIME. DENIES PAIN AT THIS TIME. SALINE LOC TO RIGHT WRIST INTACT, WITHOUT REDNESS OR EDEMA. DENIES FURTHER NEEDS AT THIS TIME. CL WITHIN REACH. ENCOURAGED TO CALL WITH NEEDS. CONTINUE POC
[2018-09-10 08:05] VITALS: BP 122/68
[2018-09-10] MEDS ORDERED: ZITHROMAX250 MG PO (08:47)
[2018-09-10] MEDS ORDERED: OMNICEF300 MG PO (08:47)
[2018-09-10] MEDS ORDERED: FLUTICASONE PRO16 GM NASAL (08:48)
[2018-09-10] MEDS ORDERED: PREDNISONE20 MG PO (08:50)
--- NOTE | 2018-09-10 10:00 | NUR ---
PT UP AND AMBULATING IN HALLWAY. NO ACUTE DISTRESS NOTED. DENIES NEEDS AT THIS TIME.
--- NOTE | 2018-09-10 11:05 | NUR ---
PT SALINE LOC FROM RIGHT WRIST D/C PER ORDER FOR DISCHARGE HOME. CATH INTACT. DISCHARGE PAPERWORK DISCUSSED AND PROVIDED, STRESSING NEED FOR CALL ON WEDNESDAY FOR FOLLOW UP WITH DR. ARELLANO IN 4-6 WEEKS. PROVIDED EDUCATION REGARDING CONTINUED MEDICATIONS AND THAT THEY HAD BEEN ESCRIBED TO [facility] ON . PT DENIES FURTHER QUESTIONS. PT TAKEN OUT WITH ALL PERSONAL BELONGINGS TO PRIVATE VEHICLE
--- NOTE | 2018-09-13 19:20 | MORECARE ---
CASE MANAGEMENT DISCHARGE SUMMARY PATIENT: ALFONSO JONAS UNIT: [id number] ADM DATE: 09/08/18 AGE: 72 : 44 SEX: M ROOM/BED: D.1207 AUTHOR: ALAN,DOC PHYSICIAN: REFERRING PHYSICIAN: JULIETA HA MD DATE OF SERVICE: 09/13/18 Discharge Plan Patient Name: ALFONSO JONAS Facility: [facility]:[place] : 1945 Planned Disposition: Home Anticipated Discharge Date: 09/10/18 Discharge Date: 09/10/2018 Expected LOS: 2 Initial Reviewer: [email or web address] Initial Review Date: 09/08/2018 Generated: 09/13/18 8:19 pm DCP- Discharge Planning Updated by [email or web address]: Magaly Shelton on 09/08/18 12:[address] CM met with patient regarding dc needs/plans. Patient gives permission to speak with his . Patient states he lives with his , Alda and she will drive him home upon discharge. Patient is Independent in his ADL's. PCP: Dr. Mazariegos. [facility]. DME: Nebulizer. Patient denies need for additional services upon discharge. Spouse: Alda Jonas #[phone]. CM will follow and assist with dc needs/plans PRN. Magaly Shelton RN DCPIA - Discharge Planning Initial Assessment Updated by [id number]: Magaly Shelton on 09/08/18 1:18 pm * Is the patient Alert and Oriented? Yes * How many steps to enter\exit or inside your home? 2 w/rails * PCP Dr. Mazariegos * [facility]acy [facility] * Preadmission Environment Home with Family * ADLs Independent * Equipment Nebulizer * Other Equipment NA * List name and contact numbers for known caregivers / representatives who currently or will assist patient after discharge: Alda Jonas () [phone] * Verbal permission to speak to the caregivers and representatives has been obtained from the patient. Yes * Community resources currently utilized None * Please name any agencies selected above. NA * Additional services required to return to the preadmission environment? No * Can the patient safely return to the preadmission environment? Yes * Has this patient been hospitalized within the prior 30 days at any hospital? No Coverage Notice Reviewer: [email or web address] Davis Shelton Notice Issued Date-Time: 09/08/2018 13:32 Notice Type: IM Admission Notice Notice Delivered To: Patient Relationship to Patient: Tank Setter Name: Delivery Method: - Rosy Days: Prior Verbal Notification: Recipient Understood Notice: Recipient Signature: Med Rec Note Co-signed by Attending: Coverage Notice Comment: Last DP export: 09/08/18 12:25 pm Patient Name: ALFONSO JONAS Page 50459 at 1920 All edits/amendments must be made on the electronic document DICTATION DATE: 09/13/181918 BARREL WASHER: GLENDY 09/13/181918 RPT#: [id number] DC DATE:09/10/18 STATUS: DIS IN [facility] [address] [place] [address] END OF REPORT
== END 2018-09-10 11:20 | disposition home or self-care (01) | DRG 191 ==
LOC: D.ER 06:11 → D.M3 07:27
PROVIDERS: Family Medicine; ADMIT Internal Medicine Nephrology; ATTEND Internal Medicine Nephrology
DX: J47.0 Bronchiectasis with acute lower respiratory infection (principal); F17.213 Nicotine dependence, cigarettes, with withdrawal; J20.9 Acute bronchitis, unspecified; J01.90 Acute sinusitis, unspecified; K21.9 Gastro-esophageal reflux disease without esophagitis; J34.2 Deviated nasal septum; G35 Multiple sclerosis; I08.1 Rheumatic disorders of both mitral and tricuspid valves; F41.9 Anxiety disorder, unspecified; Z85.51 Personal history of malignant neoplasm of bladder

== ENCOUNTER 2018-10-29 08:02 | Emergency (ER) | payer MEDICARE ==
[~2018-10-29] VITALS: Ht 182.9 cm; Wt 65.0 kg
[~2018-10-29 08:02] MED LIST changes: +FLUTICASONE PRO16 GM NASAL; +MUCINEX600 MG PO; +OMNICEF300 MG PO; +TRELEGY ELLIPT1 EACH INH; +ZITHROMAX250 MG PO
[2018-10-29 08:09] VITALS: Ht 182.9 cm; Wt 65.0 kg
[2018-10-29 08:40] LABS: BASOPHILS 0.2 % (0-2); EOSINOPHILS 0.5 % (0-7); HEMATOCRIT 42.7 % (42.0-54.0); HEMOGLOBIN 14.7 g/dL (13.5-17.5); IMMATURE GRANULOCYTES 1.4 % (0-5); LYMPHOCYTES 13.2 % (15-50); MCH 32.7 pg (26.0-34.0); MCHC 34.4 g/dL (31.0-37.0); MCV 94.9 fL (80.0-100.0); MEAN PLATELET VOLUME 8.3 fL (7.4-10.4); MONOCYTES 8.7 % (2-11); PLATELET COUNT 260 10x3/uL (130-400); RDW 14.5 % (11.5-14.5); WBC 10.8 10x3/uL (4.8-10.8)
[2018-10-29 08:57] LABS: ALBUMIN 3.9 g/dL (3.4-5.0); ALKALINE PHOSPHATASE 92 U/L (46-116); ALT (SGPT) 28 U/L (10-68); BILIRUBIN - TOTAL 0.87 mg/dL (0.2-1.3); CALC OSMOLALITY 275 mosm/kg (275-300); CALCIUM 9.3 mg/dL (8.5-10.1); CARBON DIOXIDE 29.9 mmol/L (21.0-32.0); CHLORIDE - SERUM 102 mmol/L (98-107); CREATININE - SERUM 0.8 mg/dL (0.6-1.3); GLUCOSE 99 mg/dL (74-106); POTASSIUM - SERUM 4.3 mmol/L (3.5-5.1); PROTEIN - SERUM 7.1 g/dL (6.4-8.2); SODIUM 138 mmol/L (136-145); UREA NITROGEN 13 mg/dL (7-18); eGFR NON AFRICAN AMERICAN > 90 mL/min (90-120)
[2018-10-29 09:47] VITALS: BP 129/76
== END 2018-10-29 09:48 | disposition home or self-care (01) ==
LOC: D.ER 08:02
PROVIDERS: Emergency Medicine
DX: R06.00 Dyspnea, unspecified (principal)

== ENCOUNTER → 2018-11-28 07:33 | Outpatient (CLI) | payer MEDICARE ==
[2018-10-29 08:09] VITALS: BMI 19.4
== END | disposition home or self-care (01) ==
LOC: D.RT 07:33
PROVIDERS: ATTEND Internal Medicine Pulmonary Disease
DX: J44.9 Chronic obstructive pulmonary disease, unspecified (principal)

== ENCOUNTER → 2019-08-28 07:59 | Outpatient (CLI) | payer MEDICARE ==
[2018-10-29 08:09] VITALS: BMI 19.4
== END | disposition home or self-care (01) ==
LOC: D.CT 07:59
PROVIDERS: ATTEND Thoracic Surgery (Cardiothoracic Vascular Surgery)
DX: I65.23 Occlusion and stenosis of bilateral carotid arteries (principal); I73.9 Peripheral vascular disease, unspecified

== ENCOUNTER 2019-10-10 17:01 | Emergency (ER) | payer MEDICARE ==
[~2019-10-10] VITALS: Ht 182.9 cm; Wt 63.6 kg
[2019-10-10 17:09] VITALS: Ht 182.9 cm; Wt 63.6 kg
[2019-10-10 18:11] LABS: BASOPHILS 0.2 % (0-2); EOSINOPHILS 0.3 % (0-7); HEMATOCRIT 47.8 % (42.0-54.0); HEMOGLOBIN 16.2 g/dL (13.5-17.5); IMMATURE GRANULOCYTES 1.1 % (0-5); LYMPHOCYTES 12.8 % (15-50); MCH 32.8 pg (26.0-34.0); MCHC 33.9 g/dL (31.0-37.0); MCV 96.8 fL (80.0-100.0); MEAN PLATELET VOLUME 8.4 fL (7.4-10.4); MONOCYTES 8.3 % (2-11); NEUTROPHILS 77.3 % (40-80); RBC 4.94 10x6/uL (4.20-6.10); RDW 14.6 % (11.5-14.5); WBC 12.7 10x3/uL (4.8-10.8)
[2019-10-10 18:13] LABS: PLATELET COUNT 317 10x3/uL (130-400)
[2019-10-10 18:18] LABS: INR 0.92 (0.85-1.17); PROTIME 12.3 SECONDS (11.6-15.0)
[2019-10-10 18:19] LABS: APTT 28.5 SECONDS (22.8-39.4)
[2019-10-10 18:20] LABS: D-DIMER-QUANTITATIVE < 0.27 ug/mLFEU (0.20-0.54)
[2019-10-10 18:40] LABS: CALC OSMOLALITY 270 mosm/kg (275-300); CALCIUM 10.2 mg/dL (8.5-10.1); CARBON DIOXIDE 30.5 mmol/L (21.0-32.0); CHLORIDE - SERUM 97 mmol/L (98-107); CREATININE - SERUM 0.9 mg/dL (0.6-1.3); GLUCOSE 93 mg/dL (74-106); POTASSIUM - SERUM 4.3 mmol/L (3.5-5.1); SODIUM 135 mmol/L (136-145); UREA NITROGEN 15 mg/dL (7-18); eGFR NON AFRICAN AMERICAN 87 mL/min (90-120)
[2019-10-10 18:57] LABS: ALBUMIN 4.8 g/dL (3.4-5.0); ALKALINE PHOSPHATASE 98 U/L (30-120); ALT (SGPT) 50 U/L (10-68); BILIRUBIN - TOTAL 0.68 mg/dL (0.2-1.3); CKMB 13.5 U/L (0.0-3.6); CREATINE KINASE 315 UL (21-232); PROTEIN - SERUM 7.5 g/dL (6.4-8.2)
[2019-10-10 18:59] LABS: TROPONIN-I < 0.017 ng/mL (0.000-0.060)
[2019-10-10 19:51] VITALS: BP 146/83
== END 2019-10-10 19:51 | disposition home or self-care (01) ==
LOC: D.ER 17:01
PROVIDERS: Family Medicine
DX: R55 Syncope and collapse (principal); J44.9 Chronic obstructive pulmonary disease, unspecified; K21.9 Gastro-esophageal reflux disease without esophagitis; R03.0 Elevated blood-pressure reading, without diagnosis of hypertension; Z72.0 Tobacco use

== ENCOUNTER 2019-11-21 16:54 | Emergency (ER) | payer MEDICARE ==
[~2019-11-21] VITALS: Ht 182.9 cm; Wt 63.6 kg
[2019-11-21 17:26] VITALS: Ht 182.9 cm; Wt 63.6 kg
[2019-11-21 17:54] LABS: BASOPHILS 0.2 % (0-2); EOSINOPHILS 0.3 % (0-7); HEMATOCRIT 44.6 % (42.0-54.0); HEMOGLOBIN 15.1 g/dL (13.5-17.5); IMMATURE GRANULOCYTES 0.6 % (0-5); LYMPHOCYTES 12.3 % (15-50); MCH 32.8 pg (26.0-34.0); MCHC 33.9 g/dL (31.0-37.0); MEAN PLATELET VOLUME 8.1 fL (7.4-10.4); MONOCYTES 9.1 % (2-11); NEUTROPHILS 77.5 % (40-80); PLATELET COUNT 322 10x3/uL (130-400); RDW 14.2 % (11.5-14.5); WBC 10.2 10x3/uL (4.8-10.8)
[2019-11-21 18:03] LABS: APTT 26.6 SECONDS (22.8-39.4); INR 0.99 (0.85-1.17); PROTIME 13.1 SECONDS (11.6-15.0)
[2019-11-21 18:07] LABS: CALC OSMOLALITY 268 mosm/kg (275-300); CALCIUM 9.8 mg/dL (8.5-10.1); CARBON DIOXIDE 29.4 mmol/L (21.0-32.0); CHLORIDE - SERUM 98 mmol/L (98-107); CREATININE - SERUM 0.9 mg/dL (0.6-1.3); GLUCOSE 94 mg/dL (74-106); SODIUM 134 mmol/L (136-145); UREA NITROGEN 14 mg/dL (7-18); eGFR NON AFRICAN AMERICAN 87 mL/min (90-120)
[2019-11-21 18:22] LABS: ALKALINE PHOSPHATASE 100 U/L (30-120); ALT (SGPT) 52 U/L (10-68); CKMB 13.2 U/L (0.0-3.6); CREATINE KINASE 226 UL (21-232); PROTEIN - SERUM 7.6 g/dL (6.4-8.2); TROPONIN-I < 0.017 ng/mL (0.000-0.060)
[2019-11-21 20:31] VITALS: BP 157/86
== END 2019-11-21 20:31 | disposition home or self-care (01) ==
LOC: D.ER 16:54
PROVIDERS: Family Medicine
DX: I10 Essential (primary) hypertension (principal); J44.9 Chronic obstructive pulmonary disease, unspecified; K21.9 Gastro-esophageal reflux disease without esophagitis

== ENCOUNTER → 2019-12-25 11:16 | Outpatient (CLI) | payer MEDICARE ==
[2019-11-21 17:26] VITALS: BMI 19.0
== END | disposition home or self-care (01) ==
LOC: D.LAB 11:16
PROVIDERS: ATTEND Internal Medicine Pulmonary Disease
DX: Z11.59 Encounter for screening for other viral diseases (principal)

== ENCOUNTER → 2020-05-07 11:53 | Outpatient (CLI) | payer MEDICARE ==
[2020-04-10 08:48] VITALS: BMI 17.9
[~2020-05-07 11:53] MED LIST changes: +AMITIZA8 MCG PO; +COLACE100 MG PO; +LEVOFLOXACIN500 MG PO; +MIRALAX17 GM PO; +MYCELEX TROCHE10 MG PO; +NICODERM CQ1 EAC3 TOPICAL; +PEPCID AC20 MG PO; +PROAIR HFA8.5 G1 INH; -ZANTAC150 MG PO; +Zantac PO
== END | disposition home or self-care (01) ==
LOC: D.LAB 11:53
PROVIDERS: ATTEND Internal Medicine Pulmonary Disease
DX: J44.9 Chronic obstructive pulmonary disease, unspecified (principal)

== ENCOUNTER → 2020-05-27 12:55 | Outpatient (CLI) | payer MEDICARE ==
[2020-04-10 08:48] VITALS: BMI 17.9
== END | disposition home or self-care (01) ==
LOC: D.US 12:30
PROVIDERS: ATTEND Family Medicine
DX: R60.0 Localized edema (principal)

== ENCOUNTER → 2020-05-30 12:52 | Outpatient (CLI) | payer MEDICARE ==
[2020-04-10 08:48] VITALS: BMI 17.9
== END | disposition home or self-care (01) ==
LOC: D.CT 12:52
PROVIDERS: ATTEND Nurse Practitioner Family
DX: I73.9 Peripheral vascular disease, unspecified (principal)

== ENCOUNTER 2020-06-30 22:02 | Inpatient (IN) | payer MEDICARE ==
[~2020-06-30] VITALS: Ht 182.9 cm; Wt 59.9 kg
[2020-06-30 22:34] LABS: BASOPHILS 0.2 % (0-2); EOSINOPHILS 0.6 % (0-7); HEMATOCRIT 44.5 % (42.0-54.0); HEMOGLOBIN 15.1 g/dL (13.5-17.5); IMMATURE GRANULOCYTES 0.8 % (0-5); LYMPHOCYTE ABS# 2.07 10x3/uL (1.32-3.57); LYMPHOCYTES 13.4 % (15-50); MCH 32.4 pg (26.0-34.0); MCHC 33.9 g/dL (31.0-37.0); MCV 95.5 fL (80.0-100.0); MEAN PLATELET VOLUME 8.3 fL (7.4-10.4); MONOCYTES 11.1 % (2-11); NEUTROPHIL ABS# 11.37 10x3/uL (1.78-5.38); NEUTROPHILS 73.9 % (40-80); PLATELET COUNT 329 10x3/uL (130-400); RBC 4.66 10x6/uL (4.20-6.10); RDW 14.5 % (11.5-14.5); WBC 15.4 10x3/uL (4.8-10.8)
[2020-06-30 22:37] LABS: CALC OSMOLALITY 270 mosm/kg (275-300); CALCIUM 9.5 mg/dL (8.5-10.1); CARBON DIOXIDE 27.3 mmol/L (21.0-32.0); CHLORIDE - SERUM 96 mmol/L (98-107); CREATININE - SERUM 0.9 mg/dL (0.6-1.3); GLUCOSE 123 mg/dL (74-106); POTASSIUM - SERUM 3.9 mmol/L (3.5-5.1); SODIUM 134 mmol/L (136-145); UREA NITROGEN 18 mg/dL (7-18); eGFR NON AFRICAN AMERICAN 87 mL/min (90-120)
[2020-06-30 22:45] LABS: ALBUMIN 4.2 g/dL (3.4-5.0); ALKALINE PHOSPHATASE 122 U/L (30-120); ALT (SGPT) 49 U/L (10-68); AMYLASE - SERUM 84 U/L (25-115); BILIRUBIN - TOTAL 0.55 mg/dL (0.2-1.3); LIPASE 124 U/L (73-393); PROTEIN - SERUM 7.6 g/dL (6.4-8.2)
[2020-06-30 22:46] LABS: TROPONIN-I < 0.017 ng/mL (0.000-0.060)
[2020-06-30 23:00] VITALS: BP 150/72
[2020-07-01] VITALS (7 sets, daily range): BP systolic 113–141; BP diastolic 70–84; Ht 182.9 cm; Wt 59.9 kg
[2020-07-01 00:03] LABS: BACTERIA FEW HPF (NONE SEEN); BILIRUBIN NEGATIVE (NEGATIVE); KETONE NEGATIVE (NEGATIVE); NITRITE NEGATIVE (NEGATIVE); SQUAMOUS EPITHELIAL 0-5 HPF (0-4); UROBILINOGEN NORMAL mg/dL (< 2); WHITE CELLS - URINE 0-5 HPF (0-1)
--- NOTE | 2020-07-01 00:48 | NUR ---
NGT PLACED 16F RIGHT NARE, NO AIR HEARD IN STOMACH WILL GET X-RAY TO VERIFY PLACEMENT, GREEN CONTENT RETURNING.
--- NOTE | 2020-07-01 01:34 | NUR ---
X-RAY OBTAINED FOR NG TUBE PLACEMENT DUE TO NO ASPIRATE IN CONTAINER. TUBE APPEARS JUST PROXIMAL TO STOMACH IN ESOPHAGUS. ADVANCED 8CM PER DR. GOODWIN. AFTER ADVANCEMENT RETURN WAS NOTED IN NG TUBE AND SUCTION TUBING. PLACEMENT CONFIRMED BY AUSCULTATION.
--- NOTE | 2020-07-01 07:20 | NUR ---
RECIEVE REPORT. ALERT AND ORIENTED X4. SITTING UP IN BED. NG TUBE HOOKED TO WALL SUCTION. NO SIGNS OF DISTRESS. CONTINUE PLAN OF CARE AND SAFETY PRECAUTIONS.
--- NOTE | 2020-07-01 10:20 | NUR ---
ALERT AND ORIENTED X4. SITTING UP IN BED. MINERAL OIL ADMINISTERED IN NG TUBE AND CLAMPED PER ORDER. SPOUSE AT BEDSIDE. DENIES ANY NEEDS. CONTINUE PLAN OF CARE AND SAFETY PRECAUTIONS.
--- NOTE | 2020-07-01 15:34 | NUR ---
1420-HOOK NG TUBE BACK TO SUCTION. 1530-10ml OUT TO SUCTION. CHECK RESIDUAL 0 OUT. NOTIFY ORDERED. ALERT AND ORIENTED X4. SITTING UP IN BED. HAS HAD 2 SMALL SOLID BOWEL MOVEMENTS. DENIES ANY NEEDS. CONTINUE PLAN OF CARE AND SAFETY PRECAUTIONS.
--- NOTE | 2020-07-01 16:45 | NUR ---
ALERT AND ORIENTED X4. DC NG TUBE ORDERED. TIP INTACT. DIET CHANGED TO CLEAR LIQUIDS VIA TELEPHONE PER . CONTINUE PLAN OF CARE AND SAFETY PRECAUTIONS.
[2020-07-02 01:20] VITALS: BP 113/71
--- NOTE | 2020-07-02 01:58 | NUR ---
COLLECTED RESPIRATORY SAMPLE SENT TO LAB. WILL CONTINUE TO MONITOR.
--- NOTE | 2020-07-02 04:56 | NUR ---
PT SITTING UP A/O X4. VSS. RR E/U. NO S/S OF DISTRESS. PT DENIES ANY PAIN AT THIS TIME. PT REQUESTED A POPSICLE. SO FAR TOLERATED WELL. NO COMPLAINTS OF NAUSEA OR VOMITING. WILL CONTINUE TO MONITOR.
[2020-07-02 05:20] VITALS: BP 111/77
[2020-07-02 05:59] LABS: BASOPHILS 0.1 % (0-2); EOSINOPHILS 0 % (0-7); HEMATOCRIT 41.7 % (42.0-54.0); HEMOGLOBIN 13.9 g/dL (13.5-17.5); IMMATURE GRANULOCYTES 0.4 % (0-5); LYMPHOCYTE ABS# 0.36 10x3/uL (1.32-3.57); LYMPHOCYTES 3.9 % (15-50); MCH 31.8 pg (26.0-34.0); MCHC 33.3 g/dL (31.0-37.0); MCV 95.4 fL (80.0-100.0); MEAN PLATELET VOLUME 8.6 fL (7.4-10.4); MONOCYTES 1.3 % (2-11); NEUTROPHIL ABS# 8.61 10x3/uL (1.78-5.38); NEUTROPHILS 94.3 % (40-80); PLATELET COUNT 325 10x3/uL (130-400); RBC 4.37 10x6/uL (4.20-6.10); RDW 14.7 % (11.5-14.5)
[2020-07-02 06:07] LABS: WBC 9.1 10x3/uL (4.8-10.8)
[2020-07-02 06:24] LABS: ALBUMIN 3.4 g/dL (3.4-5.0); ALKALINE PHOSPHATASE 121 U/L (30-120); CALCIUM 8.7 mg/dL (8.5-10.1); CHLORIDE - SERUM 99 mmol/L (98-107); GLUCOSE 97 mg/dL (74-106); PHOSPHOROUS 3.4 mg/dL (2.5-4.9); POTASSIUM - SERUM 4.2 mmol/L (3.5-5.1); PROTEIN - SERUM 6.3 g/dL (6.4-8.2); SODIUM 134 mmol/L (136-145)
[2020-07-02 06:25] LABS: ALT (SGPT) 35 U/L (10-68); CALC OSMOLALITY 265 mosm/kg (275-300); CREATININE - SERUM 0.6 mg/dL (0.6-1.3); UREA NITROGEN 8 mg/dL (7-18); eGFR NON AFRICAN AMERICAN > 90 mL/min (90-120)
[2020-07-02 08:00] VITALS: BP 114/79
[2020-07-02 11:00] VITALS: BP 126/67
[2020-07-02] MEDS ORDERED: LEVOFLOXACIN500 MG PO ×2 (13:14→13:36)
[2020-07-02] MEDS ORDERED: DALIRESP250 MCG PO (13:14)
[2020-07-02] MEDS ORDERED: STERAPRED DS 1210 MG PO (13:16)
[2020-07-02] MEDS ORDERED: NICODERM CQ1 EAC3 TRANSDERM (13:27)
[2020-07-02] MEDS ORDERED: mineral oil PO (13:33)
[2020-07-02] MEDS ORDERED: PREDNISONE10 MG PO (13:37)
--- NOTE | 2020-07-02 15:09 | NUR ---
ALERT AND ORIENTED X4. UP AMBULATING IN [place]. DC LT AC IV TIP INTACT. DISCHARGE INSTRUCTIONS GIVEN VERBALLY AND WRITTEN. DISHCARGE PAPERS SIGNED ON CHART. ESCORT TO RIDE VIA WHEELCHAIR. REMAINS FREE FROM INJURY.
== END 2020-07-02 15:55 | disposition home or self-care (01) | DRG 380 ==
LOC: D.ER 22:02 → D.M2 07-01 01:40
PROVIDERS: Family Medicine; ADMIT Family Medicine; ATTEND Family Medicine
DX: K31.5 Obstruction of duodenum (principal); J18.9 Pneumonia, unspecified organism; E43 Unspecified severe protein-calorie malnutrition; J47.0 Bronchiectasis with acute lower respiratory infection; Z68.1 Body mass index [BMI] 19.9 or less, adult; I10 Essential (primary) hypertension; J43.9 Emphysema, unspecified; K57.90 Diverticulosis of intestine, part unspecified, without perforation or abscess without bleeding; K21.9 Gastro-esophageal reflux disease without esophagitis; J98.09 Other diseases of bronchus, not elsewhere classified

== ENCOUNTER → 2020-07-31 11:48 | Outpatient (CLI) | payer MEDICARE ==
[2020-07-01 12:52] VITALS: BMI 17.9
[~2020-07-31 11:48] MED LIST changes: +DALIRESP250 MCG PO; +NICODERM CQ1 EAC3 TRANSDERM; +STERAPRED DS 1210 MG PO; +mineral oil PO
== END | disposition home or self-care (01) ==
LOC: D.LAB 11:48
PROVIDERS: ATTEND Internal Medicine Pulmonary Disease
DX: Z11.52 Encounter for screening for COVID-19 (principal)

== ENCOUNTER → 2020-08-06 09:40 | Outpatient (CLI) | payer MEDICARE ==
[2020-07-01 12:52] VITALS: BMI 17.9
== END | disposition home or self-care (01) ==
LOC: D.RT 09:40
PROVIDERS: ATTEND Internal Medicine Pulmonary Disease
DX: J44.9 Chronic obstructive pulmonary disease, unspecified (principal)